=== PATIENT | male | born 1955 | race Caucasian/White ===

== ENCOUNTER 2023-07-08 12:08 | Emergency (ER) | payer MEDICARE, SELFPAY ==
[2023-07-08] VITALS (27 sets, daily range): BP systolic 147–185; BP diastolic 74–94; PULSE 60–82; RESP 10–25; TEMP 36.3; O2SAT 95–99
--- NOTE | ~2023-07-08 | XR_ITS ---
EXAMINATION: XR chest 2V Exam Date/Time: 07/08/2023 16:06 FREIGHT CONDUCTOR HISTORY: weakness Comparison: 04/26/2017. RESULT: Lines, tubes, and devices: None. Lungs and pleura: Mild senescent change. Chronic left basilar scar and left posterior costophrenic a ngle blunting. Granulomas calcifications. No focal consolidation, pleural effusion, or pneumothorax. Cardiomediastinal silhouette: Stable heart size and configuration. Right hemidiaphragm eventration. Other: No acute osseous or upper abdominal finding. IMPRESSION: No acute cardiopulmonary process. Reviewed, dictated and finalized at location K. GHT CONDUCTOR
--- NOTE | 2023-07-08 14:55 | ECG_ITS ---
Measurements Intervals [place] Rate: 68 P: 74 NM: 180 QRS: 64 QRSD: 120 T: 70 QT: 427 QTc: 454 Interpretive Statements SINUS RHYTHM VENTRICULAR PREMATURE COMPLEX INTRAVENTRICULAR CONDUCTION DELAY MINIMAL Q WAVES- INFERIOR LEADS BASELINE WANDER- I, II, III BORDERLINE ECG NO PREVIOUS ECG AVAILABLE FOR COMPARISON Electronically Signed On 07-08-2023 16:12:36 [employer]YSTER HARVESTER by Praveen Byrd D.O.
[2023-07-08 15:55] LABS: Basophils Absolute Auto 0.1 K/mm3 (0.0-0.1); Basophils Percent Auto 0.5 % (0.2-1.2); Eosinophils Absolute Auto 0.3 K/mm3 (0-0.3); Eosinophils Percent Auto 3.4 % (0-4.4); Hematocrit 42.8 % (42.0-52.0); Immature Granulocyte Absolute 0.02 K/mm3 (0.00-0.031); Immature Granulocyte Percent A 0.2 % (0-0.5); Lymphocytes Absolute Auto 4.58 K/mm3 (0.9-3.2); Lymphocytes Percent Auto 48.6 % (18.3-44.2); Mean Corpuscular HGB Conc 32.7 g/dl (32-36); Mean Corpuscular Hemoglobin 30.6 pg (26-34); Mean Corpuscular Volume 93.4 fl (80-100); Mean Platelet Volume 9.2 fl (7.4-10.4); Monocytes Absolute Auto 0.6 K/mm3 (0.1-0.6); Monocytes Percent Auto 5.8 % (2.6-8.5); Neutrophils Absolute Auto 3.9 K/mm3 (1.3-6.7); Neutrophils Percent Auto 41.5 % (45.5-73.1); Platelet Count Result 239 k/mm3 (150-375); Red Blood Count 4.58 M/mm3 (4.6-6.20); Red Cell Distribution Width 13.4 % (11.5-14.5); White Blood Count 9.4 K/mm3 (4.5-10.0)
[2023-07-08 16:06] LABS: Alanine Aminotransferase 38 U/L (6-50); Albumin Level 4.3 g/dL (3.5-5.1); Alkaline Phosphatase 65 U/L (38-126); Anion Gap 10 mmol/L (8-16); Aspartate Amino Transferase 40 U/L (17-59); Bilirubin,Total 0.4 mg/dL (0.2-1.3); Blood Urea Nitrogen 16 mg/dL (9-20); Calcium 9.1 mg/dL (8.4-10.2); Carbon Dioxide 22 mmol/L (22-30); Chloride 109 mmol/L (98-107); Estimated Glomerular Filt Rate > 60; Glucose 111 mg/dL (65-110); Potassium 4.1 mmol/L (3.4-5.0); Sodium 141 mmol/L (137-145)
--- NOTE | 2023-07-08 16:21 | ED.WEAKNESS ---
HPI - Weakness General Chief complaint: Weakness Stated complaint: low oxygen levels Time Seen by Provider: 07/08/23 15:45 History of Present Illness HPI Narrative: Patient is a 67 year old male with history of HTN, JUAN here with weakness. Weakness has been worsening over last 1 month. He first started noticing he was getting sick around June 20. At that time he noted a headache and some nasal congestion. Symptoms seemed to progress after [place] with dry cough, and nasal congestion. Several family members have tested positive for COVID since the holidays. He took 2 home tests which were negative. He then started noticing a worsening cough, productive in nature last week. Some mild associated shortness of breath as well as increased nasal congestion. He has also gone to an urgent care, had negative 4 plex viral test and CXR. He has noted that his fatigue is worse with ambulation, and worse after flights of stairs. Independent with ADLS at baseline. No heart failure, no COPD, no leg swelling, no chest pain. He notes his pulse ox at home was around 90%, normal here. Related Data Allergies Allergy/AdvReac Type Severity Reaction Status Date / Time codeine Allergy Intermediate Other Verified 04/25/17 20:20 oxycodone Allergy Intermediate Other Verified 04/25/17 20:20 Review of Systems Review of Systems: All systems reviewed & are unremarkable except as noted in HPI and below Exam Narrative: GENERAL: Well-appearing, well-nourished, and in no acute distress. HEAD: Normocephalic, atraumatic. EYES: PERRLA and EOMI. ENT: Nares clear. Mucous membranes moist. Nasal congestion. NECK: Supple. CHEST: Bilateral wheeze present, coughing with even mild inspiration. no respiratory distress. HEART: Regular rate and rhythm. Normal peripheral pulses. ABDOMEN: Soft, nontender, nondistended. EXTREMITIES: Normal range of motion. No edema. SKIN: Warm, dry, no rash. NEURO: No focal deficits. Alert and oriented x3. PSYCH: Normal mood and affect. Course Course Emergency Course: Chart review performed. Patient is here with some URI symptoms as well as weakness. Triage vitals show hypertension otherwise within normal limits, normal oxygen saturation. Patient seen evaluated, nontoxic appearing and in no respiratory distress. Differentials include pneumonia, atypical pneumonia, COVID, influenza, RSV, electrolyte abnormalities, heart failure. Will additionally do trial of breathing treatment given significant wheeze on exam. He is a never smoker. Lab work and imaging reviewed. No leukocytosis, D-dimer age corrected normal. Normal renal function. Normal electrolytes. BNP within normal limits. UA negative for UTI. Troponin negative. UA negative. COVID, influenza, RSV negative. Patient re-evaluated, feeling quite a bit better. We will do a prescription for steroids, inhaler, will additionally due atypical coverage with azithromycin given he is currently on single coverage antibiotic of amoxicillin since 07/03. This should help if he has an atypical pneumonia or if he has a partially treated pneumonia. He is advised close primary care follow-up. His oxygen saturation has been great throughout his visit here. The results of pertinent diagnostic studies and exam findings were discussed. The patient?s provisional diagnosis and plan of care were discussed with the patient and present family. The patient and/or present family expressed understanding of the diagnosis and plan. The nurse was instructed to provide written instructions and appropriate follow-up information. The patient understands their need and responsibility to obtain additional follow-up as instructed. The risks of medications administered and prescribed were discussed with the patient and family present. Vital Signs Vital signs: Vital Signs Temperature 97.4 F L 07/08/23 12:12 Pulse Rate 70 07/08/23 12:12 Respiratory Rate 18 07/08/23 12:12 Blood Pressure 185/89 H 07/08/23 12:12
[2023-07-08 16:51] LABS: Appearance Urine Clear (Clear); Bacteria Urine None Seen /hpf; Bilirubin Urine Negative (Negative); Blood Urine Negative (Negative); Color Urine Yellow (Yellow); Glucose Urine UA Negative (Negative); Ketones Urine Trace mg/dL (Negative); Leukocyte Esterase Ur Negative LEU/UL (Negative); Nitrate Urine Negative (Negative); Non Pathogenic Casts 0-2; Protein Urine Trace mg/dL (Negative); RBC Urine 0-2 /hpf (0-2); Squamous Epithelial Cell Urine None seen /hpf (Few); Urobilinogen Urine 0.2 mg/dL (<2.0); WBC Urine 0-5 /hpf
[2023-07-08 16:55] LABS: Add Urine Microscopic? YES
[2023-07-08 17:00] LABS: D Dimer 0.57 ug/mL (<0.48)
[2023-07-08 17:07] LABS: NT Pro B Type Natriuretic Pept < 20 pg/mL (19.9-100)
[2023-07-08 17:10] LABS: Troponin I < 0.012 ng/mL (0.000-0.034)
[2023-07-08 17:20] LABS: Influenza A QL RT-PCR Negative (Negative); Influenza B QL RT-PCR Negative (Negative); RSV RNA, RT-PCR Negative (Negative); SARS-CoV-2 RNA PCR Negative (Negative)
[2023-07-08] MEDS: IPRATROPIUM BR 0.02% INH SOLN 0.5 MG/2.5 ML VIAL INHALATION (17:20)
[2023-07-08] MEDS: ALBUTEROL SULFATE NEB 2.5 MG/3 ML INH INHALATION (17:20)
[2023-07-08] MEDS: predniSONE 20 MG TABLET 40 MG PO (19:11)
== END 2023-07-08 19:15 | disposition home or self-care (01) ==
PROVIDERS: Family Medicine; Emergency Provider Student in an Organized Health Care Education/Training Program; PCP Family Medicine
DX: J18.9 Pneumonia, unspecified organism (principal); J98.01 Acute bronchospasm; I10 Essential (primary) hypertension; G47.33 Obstructive sleep apnea (adult) (pediatric)
CPT/HCPCS: 36415; 71046; 80053; 81001; 83880; 84484; 85025; 85380; 87637; 93005; 94640; 99284; J7512

== ENCOUNTER 2025-01-18 16:44 | Emergency (ER) | payer MEDICARE, SELFPAY ==
[2025-01-18] VITALS (16 sets, daily range): BP systolic 136–153; BP diastolic 74–103; PULSE 50–67; RESP 12–22; TEMP 36.7; O2SAT 89–100
--- NOTE | ~2025-01-18 | XR_ITS ---
CHEST RADIOGRAPH CLINICAL HISTORY: ams . COMPARISON: 07/08/2023 TECHNIQUE: Single portable view of the chest. FINDINGS The cardiomediastinal silhouette is unremarkable. Increased interstitial markings are identified bilaterally, findings suggesting mild pulmonary vascul ar congestion. The lungs are otherwise clear. IMPRESSION: Mild pulmonary vascular congestion, without focal infiltrate or effusion. Reviewed, dictated and finalized at location A.
--- NOTE | ~2025-01-18 | CT_ITS ---
CTA brain carotid Ordering provider: Rosalio Flores III, DO History: . ams/right sided weakness . Comparison: None. Technique: CT angiogram head and neck was performed following timed intravenous injection of contrast . Thin slice axial images and reformatted coronal images were obtained. Three dimensional reformatted images of the brain were also obtained using a Md7 workstation. DLP: 1185 mGy-cm. Examination is markedly limited by significant amount of motion artifact, rendering the anterior cran ial fossa evaluation nondiagnostic. FINDINGS: HEAD: --ANTERIOR AND MIDDLE CEREBRAL ARTERIES AND BRANCHES: The anterior cerebral arteries are of normal ca liber and contour. The middle cerebral arteries are poorly visualized, insufficient for comment. --INTERNAL CAROTID ARTERIES: Moderate atheromatous disease within the right internal carotid artery r esulting in mild stenosis but no occlusion. Calcified atheromatous disease within the left internal c arotid artery, specifically within the carotid siphon. No occlusion. --BASILAR ARTERY AND BRANCHES: Normal caliber and contour. No significant atheromatous disease. --POSTERIOR CEREBRAL ARTERIES: Poorly visualized secondary to motion artifact --POSTERIOR COMMUNICATING ARTERIES: Not visualized secondary to motion artifact. --ANEURYSM: None visualized. --BRAIN: Please refer to report of CT head performed the same day. --BONES AND SUPERFICIAL SOFT TISSUES: Please refer to report of CT head performed the same day. --PARANASAL SINUSES AND MASTOIDS: Please refer to report of CT head done the same day. NECK: --RIGHT CERVICAL CAROTID SYSTEM: Moderate atheromatous disease of the carotid bulb and proximal inter nal carotid artery. Percent stenosis per NASCET criteria is 49% No carotid dissection. --LEFT CERVICAL CAROTID SYSTEM: Moderate atheromatous disease of the carotid bulb and proximal creative intern al carotid artery. Percent stenosis per NASCET criteria is 46%. No carotid dissection. --VERTEBRAL ARTERIES: Normal caliber and contour. --VISUALIZED AORTIC ARCH AND BRANCHING VESSELS: Mild atheromatous disease but no significant stenosis . --SOFT TISSUES: Unremarkable --CERVICAL SPINE: Age advanced degenerative disease. IMPRESSION: Examination is limited by motion artifact within the [place] of [place], insufficient for c omment. However, 1. Percent stenosis per NASCET criteria is 49% within the right internal carotid artery and 46% wit hin the left internal carotid artery. 2. Significant calcified atherosclerotic disease is also noted within the intracranial left internal carotid artery, within the carotid siphon. 3. No large vessel occlusion within the visualized portion of the carotid and vertebral arterial sys tem. Reviewed, dictated and finalized at location A. IMPRESSION: Examination is limited by motion artifact within the [place] of [place] is, insufficient for comment. However, 1. Percent stenosis per NASCET criteria is 49% within the right internal everett tid artery and 46% within the left internal carotid artery. 2. Significant calcified atherosclerotic disease is also noted within the intr acranial left internal carotid artery, within the carotid siphon. 3. No large vessel occlusion within the visualized portion of the carotid and vertebral arterial system.
--- NOTE | ~2025-01-18 | CT_ITS ---
History: Code stroke PROCEDURE: CT head without contrast. COMPARISON: 04/25/2017 TECHNIQUE: Axial imaging of the head performed from the skull base to the vertex without IV contrast. Sagittal a nd coronal reformations obtained. DLP: 605 mGy-cm FINDINGS: The ventricles are normal in size, shape and position. There is no mass, mass effect or midline shift. There is no abnormal extra-axial fluid collection or intracranial hemorrhage. Mucoperiosteal thickening within the bilateral ethmoid and upper sphenoid sinuses. Remaining paranasal sinuses are unremarkable. The mastoid air cells are well aerated. No acute displaced fractures within the overlying cranium. Impression: No acute intracranial hemorrhage or suspicious mass effect. Inflammatory sinus disease These findings were discussed with Dr. Flores at 1657 on 01/18/2025 Reviewed, dictated and finalized at location A. Impression: No acute intracranial hemorrhage or suspicious mass effect. Inflammatory sinus disease These findings were discussed with Dr. Flores at 1657 on 01/18/2025
--- NOTE | 2025-01-18 16:49 | ECG_ITS ---
Test Date: 2025-01-18 17:03:43 Measurements Intervals [place] Rate: 57 P: 77 MT: 181 QRS: 71 QRSD: 121 T: 50 QT: 432 QTc: 423 Interpretive Statements SINUS BRADYCARDIA MODERATE INTRAVENTRICULAR CONDUCTION DELAY [110+ ms QRS DURATION] No previous ECG available for comparison Electronically Signed On 01-20-2025 15:32:43 CDT by Darin Castellon M.D.
--- NOTE | 2025-01-18 16:57 | PCCCNOTE ---
Escorted the family to the family room to discuss the pt's condition. Stated he is a overall healthy person. Stated he's a hard worker and had been out in the hot garage a lot of today which is not unusual for him. Noted he is mostly on BP and cholesterol medication and denies him being on a blood thinner. Pt was recently diagnosed with COPD. Allergy to Codeine and breaks out in a hive like rash. Updated the ED provider on the family's report.-peter
[2025-01-18 17:01] LABS: Hematocrit 37.3 % (42.0-52.0); Hemoglobin 12.5 g/dL (14.0-18.0); Immature Granulocyte Percent A 0.3 % (0-0.5); Lymphocytes Absolute Auto 3.86 K/mm3 (0.9-3.2); Mean Corpuscular HGB Conc 33.5 g/dl (32-36); Mean Corpuscular Hemoglobin 31.1 pg (26-34); Mean Corpuscular Volume 92.8 fl (80-100); Nucleated Red Blood Cells Absolute Auto 0.000 K/mm3 (0.0-0.012); Nucleated Red Blood Cells Perc 0.0 % (0.0-0.2); Platelet Count Result 209 k/mm3 (150-375); Red Blood Count 4.02 M/mm3 (4.6-6.20); White Blood Count 9.3 K/mm3 (4.5-10.0)
[2025-01-18 17:11] LABS: INR 1.0; Prothrombin Time 12.8 Seconds (11.1-14.7)
[2025-01-18 17:12] LABS: Partial Thromboplastin Time 27.2 Seconds (22.3-36.8)
--- NOTE | 2025-01-18 17:18 | ED_ITS ---
HPI - Altered Mental Status General Chief Complaint: Altered Mental Status Stated Complaint: AMS Time Seen by Provider: 01/18/25 17:08 History of Present Illness HPI narrative: Pt was fine at 1500 per . She went to the store and when she came back they found him unresponsive on the floor. Pt is moving left side but not the right side. Pt opens eyes no but is still not responding to commands or answering questions. Related Data Allergies Allergy/AdvReac Type Severity Reaction Status Date / Time codeine Allergy Intermediate Other Verified 04/25/17 20:20 oxycodone Allergy Intermediate Other Verified 04/25/17 20:20 Review of Systems 2 Review of Systems: ROS unobtainable: Yes unobtainable due to mental status Exam 2 Const: General: no acute distress Nutritional Appearance: well nourished Limitations: altered mental status HENMT: Head: normal to inspection Mouth: Yes Normal oral and palatal mucosa present Eyes: Pupils: Equal, round and reactive pupils present Neck: Neck: normal visual inspection Resp: Effort & Inspection: normal respiratory effort Auscultation: clear to auscultation bilaterally Cardio: Rate: regular rate Rhythm: regular rhythm GI: GI Palp: Yes Soft to palpation and No Tenderness to palpation present (GI) Auscultation: normal bowel sounds Skin: General skin exam: normal color Rashes: no rashes Wounds: no wounds Neuro: Other: does not follow commands or answer questions, moves left upper and lower extremities but not right. getting stroke work up. ct brain without no bleed. will get CTA head and neck. Course Vital Signs Vital signs: Vital Signs Temperature 98.0 F 01/18/25 17:09 Pulse Rate 56 L 01/18/25 17:09 Respiratory Rate 22 H 01/18/25 17:09 Blood Pressure 150/84 H 01/18/25 17:09 Pulse Oximetry 99 01/18/25 17:09 Temperature 98.0 F 01/18/25 17:41 Pulse Rate 58 L 01/18/25 18:31 Respiratory Rate 20 01/18/25 18:31 Blood Pressure 136/83 01/18/25 18:31 Pulse Oximetry 89 L 01/18/25 18:31 Oxygen Delivery Room Air 01/18/25 17:41 MDM - Altered Mental Status MDM Narrative Medical decision making narrative: Pt last known well around 3 went to grocery store when she came back around [id number] he was lying on the ground unresponsive. Pt is not answering questions or following commands. obvious concern for sah or cva with not moving right side. sroke work up initiated. ct brain no sah, cta ordered which also did not show occlusion. ;abs unremarkable so far so no obvious infection. Pt still not following commands or moving right side. discussed with Dr Draper at [facility] and recommended giving tnkase given time window and said it is low risk if not stroke. discussed with family risks and benefits explained, no contraindications. medicine given at 1825. air evac on the way. Dr Norris accepts to ER. Lab Data 01/18/25 16:50 01/18/25 17:04 Labs: Lab Results 01/18/25 01/18/25 01/18/25 Range/Units 16:50 17:04 17:05 WBC 9.3 (4.5-10.0) K/mm3 RBC 4.02 L (4.6-6.20) M/mm3 Hgb 12.5 L (14.0-18.0) g/dL Hct 37.3 L (42.0-52.0) % MCV 92.8 (80-100) fl MCH 31.1 (26-34) pg MCHC 33.5 (32-36) g/dl RDW 13.9 (11.5-14.5) % Plt Count 209 (150-375) k/mm3 MPV 9.4 (7.4-10.4) fl Immature Gran % (Auto) 0.3 (0-0.5) % Neut % (Auto) 45.1 L (45.5-73.1) % Lymph % (Auto) 41.4 (18.3-44.2) % [place] % (Auto) 8.7 H (2.6-8.5) % Eos % (Auto) 3.9 (0-4.4) % Baso % (Auto) 0.6 (0.2-1.2) % Lymph # (Auto) 3.86 H (0.9-3.2) K/mm3 [place] # (Auto) 0.8 H (0.1-0.6) K/mm3 Eos # (Auto) 0.4 H (0-0.3) K/mm3 Baso # (Auto) 0.1 (0.0-0.1) K/mm3 Abs Immat Gran (auto) 0.03 (0.00-0.031) K/mm3 Absolute Neuts (auto) 4.2 (1.3-6.7) K/mm3 Absolute Nucleated RBC 0.000 (0.0-0.012) K/mm3 Nucleated RBC % 0.0 (0.0-0.2) % PT 12.8 (11.1-14.7) Seconds INR 1.0 APTT 27.2 (22.3-36.8) Seconds Sodium 137 (137-145) mmol/L Potassium 4.0 (3.4-5.0) mmol/L Chloride 105 (98-107) mmol/L Carbon Dioxide 27 (22-30) mmol/L Anion Gap 5 (4-12) mmol/L BUN 15 (9-20) mg/dL Creatinine 1.22 (0.7-1.3) mg/dL Estim Creat Clear Calc Not Reportable Estimated GFR 59 (59 - ) Glucose 115 H (65-110) mg/dL Lactic Acid 1.1 (0.7-2.0) mmol/L Calcium 9.1 (8.4-10.2) mg/dL Total Bilirubin 0.4 (0.2-1.3) mg/dL AST 39 (17-59) U/L ALT 29 (6-50) U/L Alkaline Phosphatase 61 (38-126) U/L Ammonia < 9 L (9-30) umol/L Troponin I < 0.012 (0.000-0.034) ng/mL Total Protein 7.4 (6.3-8.2) g/dL Albumin 4.5 (3.5-5.1) g/dL TSH 2.510 (0.465-4.680) uIU/mL Urine Color (Yellow) Urine Appearance (Clear) Urine pH (5.0-9.0) Ur Specific [place] (1.001-1.035) Urine Protein (Negative) mg/dL Urine Glucose (UA) (Negative) mg/dL Urine Ketones (Negative) mg/dL Ur Blood (Man) (Negative) Urine Nitrate (Negative) Urine Bilirubin (Negative) Urine Urobilinogen (<2.0) mg/dL Leukocyte Esterase Rfl (Negative) CECI/UL Salicylates < 1.0 L (2-20) mg/dL Acetaminophen < 10 L (10-30) ug/mL Ethyl Alcohol < 10 (<10) mg/dL 01/18/25 Range/Units 18:05 WBC (4.5-10.0) K/mm3 RBC (4.6-6.20) M/mm3 Hgb (14.0-18.0) g/dL Hct (42.0-52.0) % MCV (80-100) fl MCH (26-34) pg MCHC (32-36) g/dl RDW (11.5-14.5) % Plt Count (150-375) k/mm3 MPV (7.4-10.4) fl Immature Gran % (Auto) (0-0.5) % Neut % (Auto) (45.5-73.1) % Lymph % (Auto) (18.3-44.2) % [place] % (Auto) (2.6-8.5) % Eos % (Auto) (0-4.4) % Baso % (Auto) (0.2-1.2) % Lymph # (Auto) (0.9-3.2) K/mm3 [place] # (Auto) (0.1-0.6) K/mm3 Eos # (Auto) (0-0.3) K/mm3 Baso # (Auto) (0.0-0.1) K/mm3 Abs Immat Gran (auto) (0.00-0.031) K/mm3 Absolute Neuts (auto) (1.3-6.7) K/mm3 Absolute Nucleated RBC (0.0-0.012) K/mm3 Nucleated RBC % (0.0-0.2) % PT (11.1-14.7) Seconds INR APTT (22.3-36.8) Seconds Sodium (137-145) mmol/L Potassium (3.4-5.0) mmol/L Chloride (98-107) mmol/L Carbon Dioxide (22-30) mmol/L Anion Gap (4-12) mmol/L BUN (9-20) mg/dL Creatinine (0.7-1.3) mg/dL Estim Creat Clear Calc Estimated GFR (59 - ) Glucose (65-110) mg/dL Lactic Acid (0.7-2.0) mmol/L Calcium (8.4-10.2) mg/dL Total Bilirubin (0.2-1.3) mg/dL AST (17-59) U/L ALT (6-50) U/L Alkaline Phosphatase (38-126) U/L Ammonia (9-30) umol/L Troponin I (0.000-0.034) ng/mL Total Protein (6.3-8.2) g/dL Albumin (3.5-5.1) g/dL TSH (0.465-4.680) uIU/mL Urine Color Yellow (Yellow) Urine Appearance Clear (Clear) Urine pH 7.0 (5.0-9.0) Ur Specific [place] 1.020 (1.001-1.035) Urine Protein Negative (Negative) mg/dL Urine Glucose (UA) Negative (Negative) mg/dL Urine Ketones Negative (Negative) mg/dL Ur Blood (Man) Negative (Negative) Urine Nitrate Negative (Negative) Urine Bilirubin Negative (Negative) Urine Urobilinogen 0.2 (<2.0) mg/dL Leukocyte Esterase Rfl Negative (Negative) CECI/UL Salicylates (2-20) mg/dL Acetaminophen (10-30) ug/mL Ethyl Alcohol (<10) mg/dL Critical Care Time Critical Care Time Critical Care Time: Yes Total Critical Care Time: 45 Discharge Plan Discharge Clinical Impression: Altered mental status, Acute CVA (cerebrovascular accident) Patient Disposition: Acute Care Hospital Condition: Guarded Prognosis Patient Language: Japanese Prescriptions: No Action prednisone 20 mg tablet 40 mg PO DAILY 5 Days Qty: 10 0RF albuterol sulfate 90 mcg/actuation HFA aerosol inhaler 2 puff inhalation QID PRN (Reason: shortness of breath or wheezing) Qty: 8.5 0RF azithromycin 250 mg tablet See Rx Instructions .ROUTE .COMPLEX Qty: 6 0RF Rx Instructions: For 250 mg dose pack: take 500 mg today (day 1), then 250 mg for 4 days (days 2-5) Follow-up/Referrals: Mitchel,Syd He MD [Primary Care Provider] -
--- OUTSIDE RECORDS SUMMARY | 2025-01-18 17:21 | XMS_ITS | Clinical Summary ---
Author Organization [facility] Address [address] [place] [address] Care Team Providers Care Control Systems Engineer Name Role Phone Syd Grullon MD Primary Care Provider [phone] Social History Tobacco Use Types Packs/Day Years Used Date Smoking Tobacco: Never Assessed Sex and Gender Information Value Date Recorded Sex Assigned at Not on file Legal Sex Male 8:14 AM LEAD CONSULTANT Gender Identity Male 06/21/2021 9:06 AM LEAD CONSULTANT Sexual Orientation Straight 06/21/2021 9: 06 AM LEAD CONSULTANT Plan of Treatment Health Maintenance Due Date Last Done Comments Colorectal Cancer Screening Colonoscopy (10 Years) 1955 Hepatitis C 10/07/1973 DTaP, Tdap and Td Vaccines ( 1 - Tdap) 10/07/1974 Pneumococcal Vaccine: 50+ Ye ars (1 of 1 - PCV) 10/07/2005 Zoster Vaccines (1 of 2) 10/07/2005 Annual Medicare Wellness Visit 10/07/2020 COVID-19 Vaccine (2 - 2023-2 5 season) 2024 05/14/2021 RSV Immunization or 60+ Years (1 - 1-dose 75+ series) 10/07/2030 Meningococcal B Vaccine Aged Out No l onger eligible based on patient's age to complete this topic Meningococcal Vaccine Aged Out No dimitri caryn eligible based on patient's age to complete this topic RSV Immunizations Under 20 Months Aged Out No longer eligible based on patient's age to complete this topic Insurance [employer] Care Teams Control Systems Engineer Relationship Specialty Start Date End Date Syd Grullon MD PCP - General FAMILY PRACTICE 06/06/21
--- OUTSIDE RECORDS SUMMARY | 2025-01-18 17:21 | XMS_ITS | Clinical Summary ---
Author Organization [facility] [address] Address [address] [place] [address] Care Team Providers Care Sexer Name Role Phone Syd Grullon MD Primary Care Provider [phone] Allergies Active Allergy Reactions Criticality Noted Date Comments Codeine Swelling,Rash Medium 06/03/2021 Medications cetirizine (ZyrTEC) 10 mg tablet Take 1 tablet (10 mg total) by mouth daily Active rosuvastatin (CRESTOR) 10 mg tablet Take 1 tablet by mouth once daily 100 tablet 1 08/26/2024 Active carvediloL (COREG) 12.5 mg tablet Take 1 tablet (12.5 mg total) by mouth daily 30 tablet 3 10/10/2024 Active lisinopriL (PRINIVIL,ZESTR IL) 40 mg tablet Take 1 tablet by mouth once daily 100 tablet 11/26/2024 Active amLODIPine (NORVASC) 10 mg tablet Take 1 tablet by mouth once daily 100 tablet 11/28/2024 Active traZODone (DESYREL) 50 mg tablet TAKE 1 TO 2 TABLETS BY MOUTH AT BEDTIME NEEDED FOR SLEEP 60 tablet 11/30/2024 Active indapamide (LOZOL) 1.25 mg tablet Take 1 tablet (1.25 mg total) by mouth every morning 30 tablet 3 12/20/2024 Active Active Problems Problem Noted Date Diagnosed Date Chronic pansinusitis 03/29/2024 Anosmia 03/03/2024 Deviated nasal septum 03/03/2024 Hypertrophy of both inferior nasal turbinates Positive colorectal cancer screening using Colog uard test 02/25/2022 Assessment & Plan (02/25/2022 9:37 AM CDT): No prior colonoscopy. No FH of colon cancer. +cologuard 06/2021. -schedule colonoscopy -The risks (risks of bleeding, infection, perforation requiring surgery, missed polyps/cancer, dental injury, aspiration pneumonia, anesthesia complications such as drug reaction and cardiopulmonary complications including rare chance of ), benefits, and alternatives of the planned procedure were explained to the patient who understands and consents to having procedure done. History of rib fracture 09/12/2021 Essential hypertension 06/03/2021 Mixed hyperlipidemia 06/03/2021 Chronic insomnia 06/03/2021 ANTONIO (generalized anxiety disorder) 06/03/2021 Mild intermittent asthma 06/03/2021 Lumbosacral radiculopathy 10/11/2015 Spinal stenosis 10/11/2015 Lumbar radiculopathy 09/11/2015 Resolved Problems Problem Noted Date Diagnosed Date Resolved Date Elevated LFTs 09/12/2021 12/10/2023 Encounters Date Type Department Care Team Description 12/12/2024 1:15 PM CDT Office Visit [facility] Family Medicine at [address] [place] [phone] Syd Grullon MD Essential hypertension (Primary Dx); Mixed hyperlipidemia; Chronic insomnia; Prostate cancer screening 11/03/2024 10:10 AM CDT Office Visit [facility] Orthopaedic Surgery [facility] Advanced Medicine 6th [place] [address] [place] [address] Hafsa Reyes MD Arthritis of carpometacarpal (CMC) joint of left thumb (Primary Dx) 11/03/2024 Orders Only [facility] Scanning, Provider from Last 3 Months Immunizations Immunization Administration Dates Next Due Influenza, Quadrivalent, Hig h Dose, Preservative Free, Intrr 06/10/2023 Influenza, Unspecified 03/23/2024,2021,09/12/2021(Deferr ed: Patient Refused),06/29/2020(Deferred: Patient Refused) Moderna SARS-CoV-2 Monovalen t Vaccination (12+ YRS) 09/13/2020 Pneumococcal Conjugate Pcv20 06/10/2023 ZOSTER Recombinant 07/03/2023,06/29/2020 Surgical History Surgery Date Site/Laterality Comments LAMINECTOMY 06/29/2014 - 06/28/2015 SPINE SURGERY COLONOSCOPY POLYPECTOMY Medical History Medical History Date Comments Hypertension Bronchitis ANTONIO (generalized anxiety disorder) Hypercholesteremia Colon polyp Loss of taste Loss of smell COVID related Tinnitus Family History Medical History Relation Name Comments No Known Problems Father No Known Problems Mother Relation Name Status Comments Father Mother Social History Tobacco Use Types Packs/Day Years Used Date Smoking Tobacco: Never Smokeless Tobacco: Never Tobacco Cessation:Counseling Given: Not Answered AUDIT-C Answer Date Recorded Q1: How often do you have a drink containing alcohol? 4 or more times a week 06/16/2024 Q2: How many drinks containi ng alcohol do you have on a typical day when you are drinking? 1 or 2 Q3: How often do you have si x or more drinks on one occasion? 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 Gender Identity Male 12/27/2021 2:27 PM CDT Sexual Orientation Not on file Obstetrics History Last Filed Vital Signs Vital Sign Reading Time Taken Comments Blood Pressure 170/76 12/12/2024 2:03 PM CDT Pulse 53 12/12/2024 2:01 PM CDT Temperature 36.7 C (98 F) 12/12/2024 2:01 PM CDT Respiratory Rate 18 12/12/2024 2:01 PM CDT Oxygen Saturation 98% 12/12/2024 2:01 PM CDT Inhaled Oxygen Concentration - - Weight 72.6 kg (160 lb) 12/12/2024 2:01 PM CDT Height 172.7 cm (5' 8) 12/12/2024 2:01 PM CDT Body Mass Index 24.33 12/12/2024 2:01 PM CDT Plan of Treatment Health Maintenance Due Date Last Done Comments DTaP/Tdap/Td Vaccine (1 - Tdap) 10/07/1966 Hepatitis B Screening 10/07/1973 Colon Cancer Screening-Colonoscopy 03/26/20232021, 03/26/2022 Covid-19 Vaccine (4 - 2023-2 5 season) 2024 05/14/2021, 10/11/2020, 09/13/2020 Colon Cancer Screening-DNA Stool 03/26/2025 03/26/20 22, 07/05/2021 Fall Risk Assessment 06/16/2025 06/16/2024, 06/10/2023, 06/05/2022, Additional history exists Well Visit 65+ 06/16/2025 06/16/2024, 06/10/2023 Depression Screening 12/12/2025 12/12/2024, 06/16/2024, 06/10/2023, Additional history exists Prostate Cancer Screening-PSA 09/21/2026, 07/28/2023, 04/01/2023, Additional history exists Pneumococcal vaccine 65+ Completed 06/10/2023 Zoster Vaccine Completed 07/03/2023, 06/29/2020 Influenza Vaccine Completed 03/23/2024, , 03/29/2022 Hepatitis C Screening Completed 04/21/2024 Procedures Procedure Name Priority Date/Time Associated Diagnosis Comments TX ARTHROCENTESIS ASPIR&/INJ SMALL JT/BURSA W/O US Routine 11/03/2024 10:10 AM CDT Arthritis of carpometacarpal (CMC) joint of left thumb SCAN - RADIOLOGY/IMAGING 11/03/2024 PSA SCREEN Routine 09/21/2024 7:54 AM CDT Medicare annual wellness visit, subsequent Prostate cancer screening HEPATITIS C ANTIBODY Routine 04/21/2024 10:28 AM CDT Encounter for hepatitis C screening test for low risk patient HM COLONOSCOPY Routine 03/26/2022 from Last 3 Months or Most Recently Relevant to Health Maintenance Results * TX ARTHROCENTESIS ASPIR&/INJ SMALL JT/BURSA W/O US (11/03/2024 10:10 AM CDT) Narrative Hafsa Reyes MD - 11/03/2024 10:10 AM CDT Hafsa Reyes MD 11/03/2024 2:09 PM Small Joint Injection: L thumb CMC Performed by: Hafsa Reyes MD Authorized by: Hafsa Reyes MD Small Joint Injection/Aspiration: Consent Given by: Patient Verbal consent obtained?: Yes Supporting Documentation: Indications: Pain and joint swelling Procedure Details: Location: Thumb Site: L thumb CMC Prep: patient was prepped using a clean techinque Needle Size: 25 G Approach: Dorsal Ultrasound guidance: No Medications: 40 mg methylPREDNISolone acetate 40 mg/mL; 0.5 mL lidocaine 10 mg/mL (1 %) Patient tolerance: Patient tolerated the procedure well with no immediate complications Injection. After a discussion of the pros, cons, risks, and benefits of a cortisone injection, the patient requested that we proceed. We specifically discussed the risks of skin lightening, subcutaneous fat atrophy, pain upon injection and the possibility of a flare reaction. The patient wished to proceed. A sterile preparation was performed with betadine. The injection was provided with 40 mg of depomedrol in 0.5cc of lidocaine in a pH balanced solution using a 25 gauge needle. The patient tolerated the procedure well. Hafsa Reyes MD IN CLINIC/BEDSIDE ORDERA BLES Final Result * SCAN - RADIOLOGY/IMAGING (11/03/2024) Anatomical Region Laterality Modality Other Provider Scanning Final Result * PSA screen (09/21/2024 7:54 AM CDT) PSA 0.78 < OR = 4.00 ng/mL [facility] Comment: The total PSA value from this assay system is standardized against the WHO standard. The test result will be approximately 20% lower when compared to the equimolar-standardized total PSA (Ttio Neville). Comparison of serial PSA results should be interpreted with this fact in mind. This test was performed using the Siemens chemiluminescent method. Values obtained from different assay methods cannot be used interchangeably. PSA levels, regardless of value, should not be interpreted as absolute evidence of the presence or absence of disease. Blood 09/21/2024 7:54 AM CDT 09/21/2024 7:55 AM CDT Narrative [facility] - 09/22/2024 1:32 AM CDT FASTING:YES FASTING: YES Syd Grullon MD LAB BLOOD ORDERABLES Final Re sult Performing Organization Address [facility] [address] [facility] Co de Phone Number [employer] [address] [place] [address] * Hepatitis C antibody Blood (04/21/2024 10:28 AM CDT) Hep C Ab NON-REACTI VE NON-REACT W[facility]Y [facility] Comment: HCV antibody was non-reactive. There is no laboratory evidence of HCV infection. In most cases, no further action is required. However, if recent HCV exposure is suspected, a test for HCV RNA (test code 66429) is suggested. For additional information please refer to http://education.Mobile Iron/faq/HUO21r2 (This link is being provided for informational/ educational purposes only.) Blood 04/21/2024 10:2 8 AM CDT 04/21/2024 10:28 AM CDT Narrative [facility] - 04/22/2024 6:49 AM CDT FASTING:YES FASTING: YES Manuela Peterson NP LAB MICROBIOLOGY - GENERAL OR DERABLES Final Result Performing Organization Address [facility] [address]/[facility] Co de Phone Number [employer] [address] [place] [address] * HM COLONOSCOPY (03/26/2022) Scribed HM Colonoscopy Normal Comment:op note in chart Historical Provider HEALTH MAINTENANCE Final Result from Last 3 Months or Most Recently Relevant to Health Maintenance Insurance [employer] MEDICARE GOLD AETNA MEDICARE GOLD Care Teams Sexer Relationship Specialty Start Date End Date Syd Grullon MD PCP - General Family Medicine 03/08/21
--- OUTSIDE RECORDS SUMMARY | 2025-01-18 17:21 | XMS_ITS | Referral Summary ---
Author Organization [facility] [address] Address [address] [place] [address] Care Team Providers Care Software Consultant Name Role Phone Syd Grullon MD Primary Care Provider [phone] Encounters Date Type Department Care Team Description 12/12/2024 1:15 PM CDT Office Visit [facility] Family Medicine at [address] [place] [address] Syd Grullon MD Essential hypertension (Primary Dx); Mixed hyperlipidemia; Chronic insomnia; Prostate cancer screening 11/03/2024 Orders Only [facility] Scanning, Provider 11/03/2024 10:10 AM CDT Office Visit [facility] Orthopaedic Surgery [address] [place] [address] 6th [place] [address] [place] [address] Hafsa Reyes MD Arthritis of carpometacarpal (CMC) joint of left thumb (Primary Dx) from Last 3 Months Allergies Active Allergy Reactions Criticality Noted Date [...] Date Resolved Date Elevated LFTs 09/12/2021 12/10/2023 Immunizations Immunization Administration Dates Next Due Influenza, Quadrivalent, Hig h Dose, Preservative Free, Intrr 06/10/2023 Influenza, Unspecified 03/23/2024,2021,09/12/2021(Deferr ed: Patient Refused),06/29/2020(Deferred: Patient Refused) Moderna SARS-CoV-2 Monovalen t Vaccination (12+ YRS) 09/13/2020 Pneumococcal Conjugate Pcv20 06/10/2023 ZOSTER Recombinant 07/03/2023,06/29/2020 Social History Tobacco Use Types Packs/Day Years [...] on file Legal Sex Male 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 The patient tolerated the procedure well. us Hafsa Reyes MD IN CLINIC/BEDSIDE ORDERA BLES Final Result * SCAN - RADIOLOGY/IMAGING (11/03/2024) Anatomical Region Laterality Modality Other us Provider Scanning Final Result * PSA screen (09/21/2024 7:54 AM CDT) PSA 0.78 < OR = 4.00 ng/mL [facility] Comment: The total PSA value from this assay system is standardized against the WHO standard. The test result will be approximately 20% lower when compared to the equimolar-standardized total PSA (Tito Sarah). Comparison of serial PSA results should be [...] 09/22/2024 1:32 AM CDT FASTING:YES FASTING: YES us Sdy Grullon MD LAB BLOOD ORDERABLES Final Re sult Performing Organization Address [facility] Co de Phone Number [employer] [address] [place] [address] * Hepatitis C antibody Blood (04/21/2024 10:28 AM CDT) Hep C Ab NON-REACTI VE NON-REACT WENDY [facility] Comment: HCV antibody was non-reactive. There is no laboratory evidence of HCV infection. In most cases, no further action is required. However, if recent HCV exposure is suspected, a test for HCV RNA (test code 55608) is suggested. For additional information please refer to http://education.bCODE/faq/KKC26c0 (This link is being provided for informational/ educational purposes only.) Blood 04/21/2024 10:2 8 AM CDT 04/21/2024 10:28 AM CDT Narrative [facility] - 04/22/2024 6:49 AM CDT FASTING:YES FASTING: YES us Manuela Peterson NP LAB MICROBIOLOGY - GENERAL OR DERABLES Final Result Performing Organization Address [facility] Co de Phone Number [facility] [address] [place] [address] * HM COLONOSCOPY (03/26/2022) Scribed Colonoscopy Normal Comment:op note in chart us Historical Provider HEALTH MAINTENANCE Final Result from Last 3 Months or Most Recently Relevant to Health Maintenance Insurance AETNA MEDICARE GOLD AETNA MEDICARE GOLD Care Teams Software Consultant Relationship Specialty Start Date End Date Syd Grullon MD PCP - General Family Medicine 03/08/21
[2025-01-18 17:22] LABS: Acetaminophen < 10 ug/mL (10-30); Ammonia < 9 umol/L (9-30); Salicylate < 1.0 mg/dL (2-20)
[2025-01-18 17:27] LABS: Alanine Aminotransferase 29 U/L (6-50); Albumin Level 4.5 g/dL (3.5-5.1); Alkaline Phosphatase 61 U/L (38-126); Anion Gap 5 mmol/L (4-12); Aspartate Amino Transferase 39 U/L (17-59); Bilirubin,Total 0.4 mg/dL (0.2-1.3); Blood Urea Nitrogen 15 mg/dL (9-20); Calcium 9.1 mg/dL (8.4-10.2); Carbon Dioxide 27 mmol/L (22-30); Chloride 105 mmol/L (98-107); Estimated Glomerular Filt Rate 59; Glucose 115 mg/dL (65-110); Potassium 4.0 mmol/L (3.4-5.0); Sodium 137 mmol/L (137-145); Total Protein 7.4 g/dL (6.3-8.2)
[2025-01-18 17:37] LABS: Troponin I < 0.012 ng/mL (0.000-0.034)
[2025-01-18 17:56] LABS: Thyroid Stimulating Hormone 2.510 uIU/mL (0.465-4.680)
[2025-01-18 18:17] LABS: Add Urine Microscopic? NO; Appearance Urine Clear (Clear); Glucose Urine UA Negative (Negative); Leukocyte Esterase Ur Negative LEU/UL (Negative); Nitrate Urine Negative (Negative); Specific Grav Ur 1.020 (1.001-1.035)
[2025-01-18] MEDS: TENECTEPLASE 50 MG/10 ML VIAL 19 MG IV PUSH (18:23)
== END 2025-01-18 18:50 | disposition short-term general hospital (02) ==
PROVIDERS: Emergency Provider Emergency Medicine; PCP Family Medicine
DX: I63.9 Cerebral infarction, unspecified (principal); R41.82 Altered mental status, unspecified; R00.1 Bradycardia, unspecified; I45.9 Conduction disorder, unspecified
CPT/HCPCS: 36415; 37195; 70450; 70496; 70498; 71045; 80053; 80143; 80179; 81003; 82077; 82140; 82948; 83605; 84443; 84484; 85025; 85610; 85730; 87040; 93005; 99285; J3101; Q9967